=== PATIENT | male | born 1995 | race African-American/Black ===

== ENCOUNTER 2025-08-26 18:05 | Inpatient (IN) | payer SELFPAY ==
[~2025-08-26] VITALS: Ht 162.6 cm; Wt 59.5 kg
[2025-08-26 18:11] VITALS: O2SAT 100
[2025-08-26] MEDS: LEVETIRACETAM 500MG PREMIX 100 ML IV ONE (20:48)
[2025-08-26] MEDS: SODIUM CHLORIDE 0.9% 1,000 ML IV ONE (21:00)
[2025-08-26] MEDS ORDERED: ACETAMINOPHEN 325MG TABLET PO ONE (21:00)
[2025-08-26 21:01] LABS: BASOPHILS % 0.5 % (0.0-2.0); EOSINOPHILS % 1.0 % (0.0-5.0); HEMATOCRIT. 38.4 % (42.0-52.0); HEMOGLOBIN. 12.9 g/dL (14.0-18.0); LYMPHOCYTES % 16.9 % (20.0-50.0); MEAN PLATELET VOLUME 9.4 fl (7.4-10.4); MONOCYTES % 11.3 % (2.0-8.0); NEUTROPHILS % 70.3 % (40.0-76.0); PLATELET 233 x1000/uL (130-400); RED BLOOD CELL COUNT 4.08 mill/uL (4.7-6.1); RED CELL DISTRIBUTION WIDTH 13.1 % (11.6-14.6)
[2025-08-26 21:09] LABS: CREATININE 0.9 mg/dL (0.6-1.3); UREA NITROGEN BLOOD 5 mg/dL (9-23)
[2025-08-26 21:11] LABS: ASPARTATE AMINOTRANSFERASE 45 IU/L (<34); BILIRUBIN TOTAL 0.6 mg/dL (0.1-1.0); PROTEIN TOTAL 7.2 g/dL (6.0-8.3)
[2025-08-26] MEDS: KETOROLAC 15MG/ML VIAL IV ONE (22:00)
[2025-08-26] MEDS ORDERED: LORAZEPAM 2MG/ML UD SYRINGE IV SCH (22:00)
[2025-08-27 01:00] VITALS: BP 104/52; PULSE 62; RESP 18; TEMP 36.696; TEMP 36.7; O2SAT 100
[2025-08-27] MEDS ORDERED: ACETAMINOPHEN 325MG TABLET PO PRN (02:00)
[2025-08-27 04:00] VITALS: BP 108/69; PULSE 91; RESP 16; TEMP 36.8; O2SAT 98
[2025-08-27] MEDS: PANTOPRAZOLE 40MG DR TABLET PO SCH (06:24)
[2025-08-27 08:00] VITALS: BP 111/63; PULSE 83; RESP 18; TEMP 36.9; O2SAT 98
[2025-08-27] MEDS: ENOXAPARIN 40MG/0.4ML SYR SUBCUT SCH (09:00)
[2025-08-27] MEDS: LEVETIRACETAM 500MG PREMIX 100 ML IV SCH (09:13)
[2025-08-27 12:00] VITALS: BP 122/71; PULSE 84; RESP 19; TEMP 36.9; O2SAT 99
[2025-08-27 15:05] LABS: *AMPHETAMINES SCREEN URINE NEGATIVE (NEGATIVE); *BARBITURATES SCREEN URINE NEGATIVE (NEGATIVE); *BENZODIAZEPINES SCREEN URINE NEGATIVE (NEGATIVE); *COCAINE SCREEN URINE NEGATIVE (NEGATIVE); CANNABINOID URINE SCREEN PRESUMPTIVE POSITIVE (NEGATIVE); ECSTASY MDMA SCREEN URINE NEGATIVE (NEGATIVE); METHADONE URINE SCREEN NEGATIVE (NEGATIVE); OPIATES URINE SCREEN NEGATIVE (NEGATIVE); PHENCYCLIDINE URINE SCREEN NEGATIVE (NEGATIVE)
[2025-08-27 16:00] VITALS: BP 107/55; PULSE 99; RESP 17; TEMP 37.1; O2SAT 98
[2025-08-27 20:00] VITALS: BP 110/57; PULSE 88; RESP 16; TEMP 37.2; O2SAT 98
[2025-08-27 21:15] LABS: PLATELET 210 x1000/uL (130-400); RED BLOOD CELL COUNT 4.01 mill/uL (4.7-6.1); RED CELL DISTRIBUTION WIDTH 13.3 % (11.6-14.6)
[2025-08-27 21:21] LABS: CREATININE 0.9 mg/dL (0.6-1.3); UREA NITROGEN BLOOD 8 mg/dL (9-23)
[2025-08-27 21:27] LABS: VITAMIN B12 SERUM 158 pg/mL (211-911)
[2025-08-28] VITALS: BP 101/20; PULSE 83; RESP 20; TEMP 36.9; O2SAT 99
[2025-08-28 04:00] VITALS: PULSE 79; RESP 22; O2SAT 97
[2025-08-28 08:00] VITALS: BP 112/69; PULSE 76; RESP 23; TEMP 36.7; O2SAT 97
[2025-08-28] MEDS ORDERED: KEPP500 MT (09:55)
[2025-08-28] MEDS: POTASSIUM CHLORIDE 20MEQ TABLET SR PO NR (10:18)
[2025-08-28 11:08] LABS: CREATININE 0.9 mg/dL (0.6-1.3); UREA NITROGEN BLOOD 8 mg/dL (9-23)
[2025-08-28 12:00] VITALS: BP 115/52; PULSE 68; RESP 13; TEMP 36.7; O2SAT 100
[2025-08-28 15:03] VITALS: BP 113/52; PULSE 68; RESP 13; TEMP 98
== END 2025-08-28 16:10 | disposition home or self-care (01) | DRG 53 ==
LOC: ER 18:05 → 3WST 23:50 → EDBEDREQTM 23:51 → EDBEDREQ 23:51 → ENRESERV 08-27 00:01
PROVIDERS: ADMIT Internal Medicine; ATTEND Internal Medicine
PROC: 4A00X4Z Measurement of Central Nervous Electrical Activity, External Approach (ICD-10-PCS; principal; 2025-08-28)
DX: R56.9 Unspecified convulsions (principal); S09.90XA Unspecified injury of head, initial encounter; Z20.822 Contact with and (suspected) exposure to COVID-19; W18.39XA Other fall on same level, initial encounter; F12.90 Cannabis use, unspecified, uncomplicated; Y93.89 Activity, other specified; Y92.89 Other specified places as the place of occurrence of the external cause; Y99.8 Other external cause status; Z79.899 Other long term (current) drug therapy
CPT/HCPCS: 36415; 70551; 80048; 80053; 80305; 80320; 82140; 82607; 82962; 83036; 83735; 84443; 85025; 85027; 87426; 93005; 95816; 96365; 96375; 99285; A4606; J1650; J1885; J1953; J2060; J7030; G0480